=== PATIENT | female | born 1960 | race Hispanic/Latino ===

== ENCOUNTER 2022-04-23 14:00 | Inpatient (IN) | payer BC ==
[~2022-04-23] VITALS: Ht 157.5 cm; Wt 92.5 kg
[2022-04-23 16:20] LABS: BASOPHILS % (AUTO) 0.6 % (0.0-5.0); EOSINOPHILS % (AUTO) 3.1 % (0.0-8.0); HEMATOCRIT 41.1 % (36-48); LYMPHOCYTES % (AUTO) 37.2 % (21.0-51.0); MEAN CORPUSCULAR HEMOGLOBIN 28.8 pg (27.0-33.0); MEAN CORPUSCULAR HGB CONC 33.1 g/dL (32.0-36.0); MEAN CORPUSCULAR VOLUME 86.9 fL (79-99); MONOCYTES % (AUTO) 5.3 % (3.0-13.0); NEUTROPHILS % (AUTO) 53.4 % (40.0-77.0); PLATELET COUNT (AUTO) 236 K/uL (130-400); RED BLOOD CELL COUNT(AUTO) 4.73 MIL/uL (4.00-5.50); RED CELL DISTRIBUTION WIDTH 12.1 % (11.0-15.5); WHITE BLOOD COUNT (AUTO) 5.1 K/uL (4.8-10.8)
[2022-04-23 16:24] LABS: APPEARANCE,URINE CLEAR (CLEAR); BILIRUBIN,URINE NEGATIVE (NEGATIVE); COLOR,URINE YELLOW (YELLOW); GLUCOSE, URINE (UA) NEGATIVE (NEGATIVE); KETONES,URINE NEGATIVE (NEGATIVE); LEUKOCYTE ESTERASE ,URINE NEGATIVE Leu/uL (NEGATIVE); NITRATE,URINE NEGATIVE (NEGATIVE); OCCULT BLOOD,URINE NEGATIVE (NEGATIVE); PROTEIN,URINE NEGATIVE (NEGATIVE); UROBILINOGEN,URINE 0.2 mg/dL (0.2-1.0)
[2022-04-23 16:26] LABS: MUCUS,URINE RARE LPF (None Seen); SQUAMOUS EPITHELIAL CELL,UR FEW /HPF (0-2)
[2022-04-23 16:31] LABS: PROTHROMBIN TIME 10.9 SEC (9.6-11.6)
[2022-04-23 16:32] LABS: PARTIAL THROMBOPLASTIN TIME 27.7 SEC (26.3-35.5)
[2022-04-23 16:57] LABS: ALBUMIN 3.9 g/dL (3.5-5.0); CARBON DIOXIDE 29 mmol/L (21-32); CHLORIDE 102 mmol/L (101-111); CREATININE 0.9 mg/dL (0.5-1.5); GLOMERULAR FILTR. RATE CALC 68 mL/min (>60); GLUCOSE,RANDOM 126 mg/dL (70-105); POTASSIUM 3.6 mmol/L (3.5-5.1); SODIUM SERUM 140 mmol/L (136-145); UREA NITROGEN, BLOOD 11 mg/dL (7-18)
[2022-04-23 17:02] LABS: CRP QUANTITATIVE < 2.00 mg/L (0.00-9.0)
[2022-04-24 12:19] VITALS: BP 146/99
[2022-04-24] MEDS ORDERED: FLUT9.9S NS (13:37)
[2022-04-24] MEDS ORDERED: SIMV10TA97 PO (13:37)
[2022-04-24] MEDS ORDERED: DULO30CA52 PO (13:37)
[2022-04-24] MEDS ORDERED: ENAL20TA18 PO (13:37)
[2022-04-24] MEDS ORDERED: LORA10CA PO (13:37)
[2022-04-24] MEDS ORDERED: PANT40TA54 PO (13:37)
[2022-04-24] MEDS ORDERED: METF-444 PO (13:37)
[2022-04-25] VITALS (27 sets, daily range): BP systolic 98–181; BP diastolic 68–111
[2022-04-25] MEDS ORDERED: KETOROLAC 30MG VIAL (30MG/ML) ONE (05:12)
[2022-04-25] MEDS ORDERED: BUPIVACAINE/PF 0.5% 30ML VIAL ONE (05:12)
[2022-04-25] MEDS ORDERED: TRANEXAMIC ACID 1000MG/10ML ONE ×2 (05:27→08:26)
[2022-04-25] MEDS ORDERED: ROPIVACAINE 0.5% 5MG/ML 30ML IJ ONE (06:34)
[2022-04-25] MEDS ORDERED: 0.9%NACL 1000ML 1,000 ML IV ONE (07:46)
[2022-04-25] MEDS ORDERED: CEFAZOLIN SODIUM 2 GM VIAL ONE (07:47)
[2022-04-25] MEDS ORDERED: FAMOTIDINE 20MG VIAL IV ONE (08:22)
[2022-04-25] MEDS ORDERED: HYDROMORPHONE 1 MG INJ ONE ×2 (08:22→12:10)
[2022-04-25] MEDS ORDERED: LIDOCAINE PF 100MG/5ML (2%) SYRINGE 5ML ONE (08:25)
[2022-04-25] MEDS ORDERED: SUCCINYLCHOLINE 200MG/10ML SYR ONE (08:25)
[2022-04-25] MEDS ORDERED: FENTANYL CITRATE PF 50 MCG/1 ML 2ML VIAL ONE ×3 (08:26→10:19)
[2022-04-25] MEDS ORDERED: MIDAZOLAM HCL 1 MG/ML 2ML VIAL ONE (08:26)
[2022-04-25] MEDS ORDERED: PROPOFOL 10 MG/ML 20ML VIAL IV ONE (08:26)
[2022-04-25] MEDS ORDERED: ROCURONIUM 10MG/1ML SYR 10 MG/ML ML ONE (08:26)
[2022-04-25] MEDS ORDERED: GLYCOPYRROLATE 1 MG/5 ML SYRINGE ONE (08:26)
[2022-04-25] MEDS ORDERED: PHENYLEPHRINE HCL 10 MG/ML 1ML VIAL IV ONE (08:29)
[2022-04-25] MEDS ORDERED: CEFAZOLIN SODIUM 2 GM VIAL IVP ONE (09:35)
[2022-04-25] MEDS ORDERED: ENAL20TA18 PO (09:35)
[2022-04-25] MEDS ORDERED: FERROUS FUMARATE 324 MG TABLET PO PRN (10:00)
[2022-04-25] MEDS ORDERED: KETOROLAC 15MG/ML VIAL (15MG/ML) IV PRN (10:00)
[2022-04-25] MEDS ORDERED: POTASSIUM CHLORIDE 20MEQ/100ML 100 ML IV PRN (10:00)
[2022-04-25] MEDS ORDERED: LIDOCAINE HCL-MPF 1% 2ML VIAL IV PRN (10:00)
[2022-04-25] MEDS ORDERED: POTASSIUM CHLORIDE 10% ELIXIR 20 MEQ/15 ML UDCUP PO PRN (10:00)
[2022-04-25] MEDS ORDERED: CALCIUM CARB 500MG PO PRN (10:00)
[2022-04-25] MEDS ORDERED: KCL 20 MEQ ERTAB PO PRN (10:00)
[2022-04-25] MEDS ORDERED: TRAMADOL HCL 50 MG TABLET PO PRN (10:00)
[2022-04-25] MEDS: 0.9%NACL 1000ML 1,000 ML IV SCH ×2 (10:00→20:00)
[2022-04-25] MEDS ORDERED: DiphenhydrAMINE HCL 50 MG/ML VIAL IVP PRN (10:00)
[2022-04-25] MEDS ORDERED: ONDANSETRON 4MG INJ IVP PRN (10:00)
[2022-04-25] MEDS ORDERED: ONDANSETRON 4MG INJ ONE (10:05)
[2022-04-25] MEDS ORDERED: NEOSTIGMINE 5MG/5ML SYR IV ONE (11:09)
[2022-04-25] MEDS ORDERED: TRANEXAMIC ACID 1000MG/10ML IJ ONE (11:10)
[2022-04-25] MEDS ORDERED: LABETALOL 20MG SYG IV ONE (11:42)
[2022-04-25] MEDS: HYDROCODONE/ACETAMINOPHEN 5/325 MG TAB PO PRN ×2 (13:34→22:01)
[2022-04-25] MEDS: CEFAZOLIN SODIUM 1 GM VIAL IVP SCH ×2 (17:48→23:51)
[2022-04-25] MEDS: GABAPENTIN 100 MG CAPSULE PO SCH ×2 (17:49→20:36)
[2022-04-25] MEDS: KETOROLAC 15MG/ML VIAL (15MG/ML) IV SCH ×2 (17:49→17:54)
[2022-04-25] MEDS ORDERED: FLUTICASONE PROPIONATE 50MCG/SPRAY 16 GM BOTTLE NS PRN (19:30)
[2022-04-25] MEDS ORDERED: LORATADINE 10 MG TABLET PO PRN (19:30)
[2022-04-25] MEDS: SIMVASTATIN 10 MG TABLET PO SCH (20:35)
[2022-04-25] MEDS: DOCUSATE SODIUM 100 MG CAP PO SCH (20:36)
[2022-04-25] MEDS: DULOXETINE HCL 30 MG CAP PO SCH (20:36)
[2022-04-25] MEDS: METFORMIN HCL 500 MG TABLET PO SCH (20:36)
[2022-04-26] VITALS (7 sets, daily range): BP systolic 110–149; BP diastolic 55–85
[2022-04-26] MEDS: KETOROLAC 15MG/ML VIAL (15MG/ML) IV SCH (00:10)
[2022-04-26] MEDS: CYCLOBENZAPRINE HCL 10 MG TABLET PO PRN ×2 (00:10→18:03)
[2022-04-26 04:30] LABS: HEMATOCRIT 32.2 % (36-48); MEAN CORPUSCULAR HEMOGLOBIN 29.5 pg (27.0-33.0); MEAN CORPUSCULAR HGB CONC 32.6 g/dL (32.0-36.0); MEAN CORPUSCULAR VOLUME 90.4 fL (79-99); RED BLOOD CELL COUNT(AUTO) 3.56 MIL/uL (4.00-5.50); RED CELL DISTRIBUTION WIDTH 12.4 % (11.0-15.5); WHITE BLOOD COUNT (AUTO) 6.2 K/uL (4.8-10.8)
[2022-04-26 04:34] LABS: CREATININE 0.8 mg/dL (0.5-1.5); POTASSIUM 3.7 mmol/L (3.5-5.1)
[2022-04-26] MEDS: 0.9%NACL 1000ML 1,000 ML IV SCH (05:20)
[2022-04-26] MEDS: DOCUSATE SODIUM 100 MG CAP PO SCH ×2 (08:57→20:00)
[2022-04-26] MEDS: PANTOPRAZOLE 40 MG TAB DR PO SCH (08:57)
[2022-04-26] MEDS: GABAPENTIN 100 MG CAPSULE PO SCH ×3 (08:57→20:01)
[2022-04-26] MEDS: POLYETHYLENE GLYCOL 3350 17 GM POWD.PACK PO SCH (08:57)
[2022-04-26] MEDS: METFORMIN HCL 500 MG TABLET PO SCH ×2 (08:57→20:00)
[2022-04-26] MEDS: ASPIRIN 325MG TAB PO SCH (08:57)
[2022-04-26] MEDS: HYDROCODONE/ACETAMINOPHEN 5/325 MG TAB PO PRN ×3 (08:58→20:00)
[2022-04-26] MEDS: ENALAPRIL MALEATE 10 MG TABLET PO SCH (09:00)
[2022-04-26] MEDS: SIMVASTATIN 10 MG TABLET PO SCH (20:00)
[2022-04-26] MEDS: DULOXETINE HCL 30 MG CAP PO SCH (20:00)
[2022-04-27 04:14] VITALS: BP 130/76
[2022-04-27] MEDS: HYDROCODONE/ACETAMINOPHEN 5/325 MG TAB PO PRN (06:14)
[2022-04-27 08:00] VITALS: BP 123/67
[2022-04-27] MEDS: PANTOPRAZOLE 40 MG TAB DR PO SCH (08:43)
[2022-04-27] MEDS: DOCUSATE SODIUM 100 MG CAP PO SCH (08:43)
[2022-04-27] MEDS: GABAPENTIN 100 MG CAPSULE PO SCH ×2 (08:44→13:21)
[2022-04-27] MEDS: METFORMIN HCL 500 MG TABLET PO SCH (08:44)
[2022-04-27] MEDS: POLYETHYLENE GLYCOL 3350 17 GM POWD.PACK PO SCH (08:46)
[2022-04-27] MEDS: ASPIRIN 325MG TAB PO SCH (08:46)
[2022-04-27] MEDS: ENALAPRIL MALEATE 10 MG TABLET PO SCH (09:00)
[2022-04-27] MEDS ORDERED: DOCU-116 PO (09:48)
[2022-04-27] MEDS ORDERED: HYDR-4060 PO (09:48)
[2022-04-27] MEDS ORDERED: ASPI-1026 PO (09:48)
[2022-04-27] MEDS ORDERED: GABA100C PO (09:48)
[2022-04-27] MEDS ORDERED: CYCL-309 PO (09:48)
[2022-04-27 12:00] VITALS: BP 125/66
[2022-04-28] MEDS ORDERED: BISACODYL 10 MG SUPP.RECT RC PRN (10:00)
== END 2022-04-27 13:30 | disposition home health service (06) | DRG 470 ==
LOC: DAHIP 04-25 07:46 → 4DH 04-25 13:20
PROVIDERS: ADMIT Student in an Organized Health Care Education/Training Program; ATTEND Student in an Organized Health Care Education/Training Program
PROC: 3E0T3BZ Introduction of Anesthetic Agent into Peripheral Nerves and Plexi, Percutaneous Approach (ICD-10-PCS; 2022-04-25)
PROC: 3E0T33Z Introduction of Anti-inflammatory into Peripheral Nerves and Plexi, Percutaneous Approach (ICD-10-PCS; 2022-04-25)
PROC: 0SRC0J9 Replacement of Right Knee Joint with Synthetic Substitute, Cemented, Open Approach (ICD-10-PCS; principal; 2022-04-25 10:00)
DX: M17.11 Unilateral primary osteoarthritis, right knee (principal); D62 Acute posthemorrhagic anemia; Z20.822 Contact with and (suspected) exposure to COVID-19; G89.29 Other chronic pain; I10 Essential (primary) hypertension; K21.9 Gastro-esophageal reflux disease without esophagitis; M23.8X1 Other internal derangements of right knee
CPT/HCPCS: 36415; 73560; 80048; 81001; 82040; 82948; 84134; 85025; 85027; 85610; 85730; 86140; 87426; 87641; 97039; G0378; J0330; J0690; J1170; J1885; J2001; J2250; J2370; J2405; J2704; J2710; J2795; J3010; J3490; J7030

== ENCOUNTER 2023-09-16 06:02 | Observation (INO) | payer OTHER ==
[2023-09-13 15:01] VITALS: BP 141/81; PULSE 76; RESP 16
[2023-09-13 15:06] LABS: BASOPHILS # (AUTO) 0.03 K/uL (0.00-0.20); BASOPHILS % (AUTO) 0.5 % (0.0-5.0); EOSINOPHILS # (AUTO) 0.14 K/uL (0.00-0.70); EOSINOPHILS % (AUTO) 2.2 % (0.0-8.0); HEMATOCRIT 37.2 % (36-48); IMMATURE GRANULOCYTE ABSOLUTE 0.02 K/uL (0-1); LYMPHOCYTES # (AUTO) 2.2 K/uL (1.0-4.8); LYMPHOCYTES % (AUTO) 34.9 % (21.0-51.0); MEAN CORPUSCULAR HEMOGLOBIN 30.3 pg (27.0-33.0); MEAN CORPUSCULAR HGB CONC 33.3 g/dL (32.0-36.0); MONOCYTES # (AUTO) 0.4 K/uL (0.1-1.0); MONOCYTES % (AUTO) 5.6 % (3.0-13.0); NEUTROPHILS # (AUTO) 3.5 K/uL (1.8-7.7); NEUTROPHILS % (AUTO) 56.5 % (40.0-77.0); PLATELET COUNT (AUTO) 216 K/uL (130-400); RED BLOOD CELL COUNT(AUTO) 4.09 MIL/uL (4.00-5.50); WHITE BLOOD COUNT (AUTO) 6.2 K/uL (4.8-10.8)
[2023-09-13 15:18] LABS: ALBUMIN 3.6 g/dL (3.5-5.0)
[2023-09-13 16:00] LABS: APPEARANCE,URINE CLEAR (CLEAR); BILIRUBIN,URINE NEGATIVE (NEGATIVE); COLOR,URINE LIGHT-YELLOW (YELLOW); GLUCOSE, URINE (UA) >=1000 mg/dL (NEGATIVE); KETONES,URINE NEGATIVE (NEGATIVE); LEUKOCYTE ESTERASE ,URINE NEGATIVE Leu/uL (NEGATIVE); NITRATE,URINE NEGATIVE (NEGATIVE); OCCULT BLOOD,URINE NEGATIVE (NEGATIVE); PH,URINE 5.5 (5.0-8.0); PROTEIN,URINE NEGATIVE (NEGATIVE); UROBILINOGEN,URINE 0.2 mg/dL (0.2-1.0)
[2023-09-13 16:02] LABS: ADD UA MICROSCOPIC YES
[2023-09-13 16:05] LABS: MUCUS,URINE RARE LPF (None Seen); RBC,URINE 0-1 /HPF (0-1); SQUAMOUS EPITHELIAL CELL,UR FEW /HPF (0-2)
[~2023-09-16] VITALS: Ht 157.5 cm; Wt 81.4 kg
[2023-09-16] VITALS (27 sets, daily range): BP systolic 108–142; BP diastolic 48–78; PULSE 62–92; RESP 15–19; O2SAT 96
[~2023-09-16 06:02] MED LIST: AMIT10TA6 PO; CEFAZOLIN SODIUM 1 GM VIAL IVPB PRN; DAPA5TAB PO; ENAL-91 PO; METF-444 PO; PANT40TA54 PO; PIOG15TA66 PO; SIMV-43 PO; TIZA-211 PO
[2023-09-16] MEDS ORDERED: CEFAZOLIN SODIUM 2 GM VIAL ONE (06:21)
[2023-09-16] MEDS ORDERED: ACETAMINOPHEN 1,000 MG/100 ML VIAL IV ONE (06:34)
[2023-09-16] MEDS ORDERED: FAMOTIDINE 20MG VIAL IV ONE (06:34)
[2023-09-16] MEDS ORDERED: LIDOCAINE PF 100MG/5ML (2%) SYRINGE 5ML ONE (06:49)
[2023-09-16] MEDS ORDERED: FENTANYL CITRATE PF 50 MCG/1 ML 2ML VIAL ONE (06:50)
[2023-09-16] MEDS ORDERED: PROPOFOL 10 MG/ML 20ML VIAL IV ONE (06:50)
[2023-09-16] MEDS ORDERED: ROCURONIUM BROMIDE 10MG/1ML 5ML VL ONE (06:50)
[2023-09-16] MEDS ORDERED: ROPIVACAINE 0.5% 5MG/ML 30ML ONE ×2 (06:52→06:56)
[2023-09-16] MEDS ORDERED: KETOROLAC 30MG VIAL (30MG/ML) ONE (06:56)
[2023-09-16] MEDS ORDERED: TRANEXAMIC ACID 1000MG/10ML ONE (06:56)
[2023-09-16] MEDS: CEFAZOLIN SODIUM 2 GM VIAL IVPB ONE (07:11)
[2023-09-16] MEDS ORDERED: KETAMINE 50MG/ML SYRINGE 50 MG/ML DISP.SYRIN ONE (07:18)
[2023-09-16] MEDS ORDERED: DEXAMETHASONE SOD PHOSPHATE 10MG/ML 1ML VIAL ONE (07:20)
[2023-09-16] MEDS ORDERED: ONDANSETRON 4MG INJ ONE (07:20)
[2023-09-16] MEDS ORDERED: NEOSTIGMINE METHYLSULFATE 1MG/ML IV ONE (08:52)
[2023-09-16] MEDS ORDERED: GLYCOPYRROLATE 0.2 MG/ML 5 ML VIAL ONE (08:52)
[2023-09-16] MEDS: 0.9%NACL 1000ML 1,000 ML IV ONE (08:57)
[2023-09-16] MEDS ORDERED: FERROUS FUMARATE 324 MG TABLET PO PRN (09:30)
[2023-09-16] MEDS ORDERED: CYCLOBENZAPRINE HCL 10 MG TABLET PO PRN (09:30)
[2023-09-16] MEDS ORDERED: DiphenhydrAMINE HCL 50 MG/ML VIAL IVP PRN (09:30)
[2023-09-16] MEDS ORDERED: CALCIUM CARB 500MG PO PRN (09:30)
[2023-09-16] MEDS ORDERED: KCL 20 MEQ ERTAB PO PRN (09:30)
[2023-09-16] MEDS ORDERED: ONDANSETRON 4MG INJ IVP PRN (09:30)
[2023-09-16] MEDS ORDERED: POTASSIUM CHLORIDE 10% ELIXIR 20 MEQ/15 ML UDCUP PO PRN (09:30)
[2023-09-16] MEDS ORDERED: TRAMADOL HCL 50 MG TABLET PO PRN (09:30)
[2023-09-16] MEDS ORDERED: POTASSIUM CHLORIDE 20MEQ/100ML 100 ML IV PRN (09:30)
[2023-09-16] MEDS: MEPERIDINE-PF 25 MG/ML SYG ONE ×2 (09:55→10:04)
[2023-09-16] MEDS: INSULIN HUMULIN R 100 UNIT/ML 3ML SQ SCH (11:30)
[2023-09-16] MEDS: KETOROLAC 15MG/ML VIAL (15MG/ML) IV SCH (13:39)
[2023-09-16] MEDS: 0.9%NACL 1000ML 1,000 ML IV SCH (15:01)
[2023-09-16] MEDS: GABAPENTIN 100 MG CAPSULE PO SCH (15:01)
[2023-09-16] MEDS: CEFAZOLIN SODIUM 2 GM VIAL IVPB SCH (15:01)
[2023-09-16] MEDS: DOCUSATE SODIUM 100 MG CAP PO SCH (19:51)
[2023-09-16] MEDS: HYDROCODONE/ACETAMINOPHEN 5/325 MG TAB PO PRN (19:53)
[2023-09-17 04:02] VITALS: BP 127/71; PULSE 81; RESP 18
[2023-09-17 05:05] LABS: MEAN CORPUSCULAR HEMOGLOBIN 30.5 pg (27.0-33.0); MEAN CORPUSCULAR HGB CONC 32.8 g/dL (32.0-36.0); MEAN CORPUSCULAR VOLUME 93.2 fL (79-99); RED BLOOD CELL COUNT(AUTO) 3.11 MIL/uL (4.00-5.50); RED CELL DISTRIBUTION WIDTH 13.1 % (11.0-15.5); WHITE BLOOD COUNT (AUTO) 7.7 K/uL (4.8-10.8)
[2023-09-17 05:22] LABS: CREATININE 1.1 mg/dL (0.5-1.0); POTASSIUM 3.9 mmol/L (3.5-5.1)
[2023-09-17 08:00] VITALS: O2SAT 99
[2023-09-17] MEDS: ASPIRIN 325MG EC TAB PO SCH (08:20)
[2023-09-17] MEDS: POLYETHYLENE GLYCOL 3350 17 GM POWD.PACK PO SCH (08:20)
[2023-09-17 08:43] VITALS: BP 130/75; PULSE 95; RESP 18
[2023-09-17] MEDS: (Dapagliflozin Propanediol (Farxiga) 5 MG) PO SCH (09:00)
[2023-09-17] MEDS: LISINOPRIL 40 MG TABLET PO SCH (09:00)
[2023-09-17] MEDS ORDERED: KETOROLAC 15MG/ML VIAL (15MG/ML) IV PRN (09:30)
[2023-09-17] MEDS: PANTOPRAZOLE 40 MG TAB DR PO SCH (09:34)
[2023-09-17] MEDS: PIOGLITAZONE 15MG TAB PO SCH (09:36)
[2023-09-17 11:26] VITALS: BP 122/72; PULSE 77; RESP 16
[2023-09-17] MEDS ORDERED: GABA100C PO (16:56)
[2023-09-17] MEDS ORDERED: DOCU-116 PO (16:56)
[2023-09-17] MEDS ORDERED: HYDR-4060 PO (16:56)
[2023-09-17] MEDS ORDERED: CYCL-309 PO (16:56)
[2023-09-17] MEDS ORDERED: ASPI-891 PO (16:56)
[2023-09-17] MEDS ORDERED: METFORMIN HCL 500 MG TABLET PO SCH (21:00)
[2023-09-17] MEDS ORDERED: AMITRIPTYLINE 10MG TAB PO SCH (21:00)
[2023-09-17] MEDS ORDERED: SIMVASTATIN 20 MG TABLET PO SCH (21:00)
[2023-09-18] MEDS ORDERED: METFORMIN HCL 500 MG TABLET PO SCH (08:00)
[2023-09-19] MEDS ORDERED: BISACODYL 10 MG SUPP.RECT RC PRN (09:30)
== END 2023-09-17 17:00 | disposition home health service (06) ==
LOC: DAH 06:02 → DAHIP 06:03 → DAH 06:03 → 4BH 11:36
PROVIDERS: ADMIT Student in an Organized Health Care Education/Training Program; ATTEND Student in an Organized Health Care Education/Training Program
DX: M17.12 Unilateral primary osteoarthritis, left knee (principal); D62 Acute posthemorrhagic anemia; I10 Essential (primary) hypertension; K21.9 Gastro-esophageal reflux disease without esophagitis; E11.9 Type 2 diabetes mellitus without complications; E78.00 Pure hypercholesterolemia, unspecified; Z90.710 Acquired absence of both cervix and uterus; Z96.651 Presence of right artificial knee joint; Z79.899 Other long term (current) drug therapy
CPT/HCPCS: 82040; 85025; 87088; 84134; 86140; 81001; 36415 ×2; 87641; 64447; 27447; 96376; 96365; 96366; 96375; 82948 ×7; 73560; 97161; 97116 ×3; 97530 ×4; 93005; 80048; 85027; G0378 ×29; A4663; A4215 ×3; A4600 ×2; J3490 ×6; J3010; J1100; J7030; J2001; J2704; J2405; J1885 ×5; J2710; J2175 ×2; J2795 ×3; J0690 ×4; G0168; C1776 ×2; A4649 ×2; C1713; A4930; A6255; A5120; A4223; A4213; A4222; A4221

== ENCOUNTER → 2024-12-10 | Outpatient (CLI) | payer OTHER ==
[~2024-12-10] MED LIST changes: +AMIT10TA13 PO; -AMIT10TA6 PO; +ASPI-891 PO; -CEFAZOLIN SODIUM 1 GM VIAL IVPB PRN; +CYCL-309 PO; +DOCU-116 PO; +GABA100C PO; +HYDR-4060 PO; -TIZA-211 PO
--- NOTE | 2024-12-11 09:39 | HMCIMG ---
EXAM: CT Cardiac calcium scoring. CLINICAL HISTORY: CAD screening. TECHNIQUE: Thin collimated axial CT cardiac images were obtained. A CT scan is done according to ALARA (As Low As Reasonably Achievable). CONTRAST: None. COMPARISON: None provided. FINDINGS: Suspected calculus in the gallbladder. Calcium Score: VESSEL Number of lesions Volume mm3 Equi. Mass/mg Calcium score LM 0 00.00 --.-- 00.00 LAD 2 57.5 --.-- 79.0 LCX 0 00.00 --.-- 00.00 RCA 0 00.00 --.-- 00.00 Total 2 57.5 --.-- 79.0 IMPRESSION: The calcium score is 79. This places the patient at 75th percentile in comparison to a group of patients asymptomatic for coronary artery disease with the same age and gender. This means that 75% of females aged 60-64 have a calcium score that is lower than the patient's. /Nasima
== END | disposition home or self-care (01) ==
LOC: RAH 14:00
PROVIDERS: ATTEND Internal Medicine Cardiovascular Disease
DX: Z13.6 Encounter for screening for cardiovascular disorders (principal); I25.10 Atherosclerotic heart disease of native coronary artery without angina pectoris
CPT/HCPCS: 75571